=== PATIENT | male | born 1995 | race Hispanic/Latino ===

== ENCOUNTER 2021-12-03 21:55 | Emergency (ER) | payer SELFPAY ==
[2021-12-04 08:59] LABS: Basophils # (Auto) 0.1 K/mm3 (0.0-0.1); Basophils % (Auto) 0.9 % (0.0-1.8); Eosinophils # (Auto) 0.1 K/mm3 (0.0-0.4); Eosinophils % (Auto) 1.6 % (0.0-4.3); Hematocrit 43.1 % (35.5-45.6); Hemoglobin 15.1 gm/dl (11.8-15.2); Lymphocytes # (Auto) 1.3 K/mm3 (1.2-5.4); Lymphocytes % (Auto) 22.7 % (13.4-35.0); Mean Corpuscular HGB Conc 35 % (32-34); Mean Corpuscular Volume 84 fl (84-94); Monocytes # (Auto) 0.3 K/mm3 (0.0-0.8); Platelet Count 225 K/mm3 (140-440); Red Blood Count 5.15 M/mm3 (3.65-5.03)
[2021-12-04 09:21] LABS: Alanine Aminotransferase 12 units/L (7-56); Albumin 5.3 g/dL (3.9-5); Blood Urea Nitrogen 11 mg/dL (9-20); Calcium 9.8 mg/dL (8.4-10.2); Hemolysis Index 7
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
[2021-12-04 09:29] LABS: BUN/Creatinine Ratio 18
[2021-12-04 09:54] LABS: Bilirubin,Urine NEG (Negative); Blood,Urine NEG (Negative); Color,Urine Yellow (Yellow); Mucus,Urine 2+ /HPF; Protein,Urine <15 mg/dL mg/dL (Negative); Urobilinogen,Urine < 2.0 mg/dL (<2.0); WBC,Urine < 1.0 /HPF (0.0-6.0)
[2021-12-04 09:56] LABS: Amphetamine Screen,Urine Negative; Benzodiazepines Screen,Urine Negative; Cannabinoid Screen,Urine Negative; Cocaine Screen,Urine Negative; Methadone Screen,Urine Negative; Opiate Screen,Urine Negative
--- NOTE | 2021-12-04 10:01 | XRay Report ---
CHEST 1 VIEW 12/04/2021 9:28 AM INDICATION / CLINICAL INFORMATION: possible FB ingestioin. COMPARISON: None available. FINDINGS: SUPPORT DEVICES: None. HEART / MEDIASTINUM: No significant abnormality. LUNGS / PLEURA: No significant pulmonary or pleural abnormality. No pneumothorax. ADDITIONAL FINDINGS: Several radiopaque densities seen in the acetabulum inferiorly within the abdome n. Please see abdomen report further evaluate for foreign body Signer Name: Aaron Mcguire MD Signed: 12/04/2021 9:56 AM Workstation Name: [id number]
--- NOTE | 2021-12-04 10:05 | XRay Report ---
XR abdomen 1V ap INDICATION / CLINICAL INFORMATION: possible FB ingestion. COMPARISON: None available. FINDINGS: TUBES / LINES: None. BOWEL GAS PATTERN: Nonobstructive bowel gas pattern. FREE AIR / EXTRALUMINAL GAS: None seen. ADDITIONAL FINDINGS: No significant additional findings. IMPRESSION: 1. No foreign body identified. Signer Name: Jean Pierre Velasquez MD Signed: 12/04/2021 10:01 AM Workstation Name: [id number]
--- NOTE | 2021-12-04 12:15 | Electrocardiograph Report ---
Test Date: 2021-12-04 Test Time: 00:09:53 Pat Name: MAHAD JARVIS Department: Room: Gender: M Microbiology Lab Analyst: JUAN : 1995 Requested By: ED DOC Order Number: [id number] Reading MD: Clif Bonilla Measurements Intervals [place] Rate: 58 P: 79 ND: 132 QRS: 92 QRSD: 114 T: 91 QT: 440 QTc: 434 Interpretive Statements Sinus bradycardia LVH with IVCD and secondary repol abnrm Anterior ST elevation, probably due to LVH No previous ECG available for comparison Electronically Signed On 12-04-2021 12:14:59 EDT by Clif Bonilla
[2021-12-04 12:31] VITALS: BP 131/78
== END 2021-12-04 12:31 | disposition home or self-care (01) ==
LOC: ED 21:55
DX: F29 Unspecified psychosis not due to a substance or known physiological condition (principal); Z20.822 Contact with and (suspected) exposure to COVID-19; F22 Delusional disorders; F19.11 Other psychoactive substance abuse, in remission; Z13.30 Encounter for screening examination for mental health and behavioral disorders, unspecified; F17.200 Nicotine dependence, unspecified, uncomplicated; F12.90 Cannabis use, unspecified, uncomplicated
CPT/HCPCS: 36415; 71045; 74018; 80053; 80307; 81001; 82962; 85025; 93005; 99284; U0003; 80320; G0480